=== PATIENT | male | born 2005 | race Caucasian/White ===

== ENCOUNTER 2024-08-22 12:28 | Outpatient (REF) | payer OTHER, SELFPAY ==
--- NOTE | ~2024-08-22 | MR_ITS ---
EXAMINATION: MR KNEE WITHOUT CONTRAST, LEFT CLINICAL INFORMATION: Left knee pain, swelling, numbness. Injury. Effusion. COMPARISON: None available. TECHNIQUE: MRI of the knee without contrast was performed using routine sequences on a high-field scanner. FINDINGS: MENISCI: Medial Meniscus: Intact Lateral Meniscus: Intact LIGAMENTS: Cruciate: Intact Collateral: Intact EXTENSOR MECHANISM: Intact ARTICULAR CARTILAGE/BONE: Patellofemoral Compartment: Intact articular cartilage. Medial Compartment: Intact articular cartilage. Lateral Compartment: Intact articular cartilage. JOINT FLUID AND BURSAE: Large joint effusion with diffuse synovial thickening and adjacent soft tissue edema. Additionally, there is periarticular marrow edema. No associated erosion. Fluid and synovitis extending into the popliteal tendon sheath. Small Giraldo's cyst with diffuse synovitis. Adjacent fluid/edema extending inferiorly within the fascial planes, consistent with leak or rupture. Partially visualized, prominent popliteal lymph nodes measuring up to 1.3 and 1.3 cm. MR/MR knee LT wo con IMPRESSION: 1. Large joint effusion with diffuse synovial thickening and adjacent soft tissue edema, as well as periarticular marrow edema. No associated erosion. Prominent popliteal lymph nodes. Findings are concerning for an infectious or inflammatory arthropathy. Lyme arthropathy could be considered in the appropriate clinical setting. 2. Small Giraldo's cyst with diffuse synovitis. Adjacent fluid/edema extending inferiorly within the fascial planes, consistent with leak or rupture. 3. No acute meniscal or ligamentous injury. Electronically signed by: Isidro Epstein MD 08/22/2024 09:07 PM [facility] [place]
== END 2024-08-22 12:29 | disposition home or self-care (01) ==
LOC: HO.MRI 12:28
PROVIDERS: Visit Provider Student in an Organized Health Care Education/Training Program
DX: M25.462 Effusion, left knee (principal)
CPT/HCPCS: 73721